=== PATIENT | male | born 1995 | race Caucasian/White ===

== ENCOUNTER 2017-12-30 17:53 | Emergency (ER) | payer OTHER ==
[~2017-12-30] VITALS: Ht 180.3 cm; Wt 86.5 kg
[2017-12-30 17:55] VITALS: BP 172/96; PULSE 80; RESP 16; TEMP 98; O2SAT 98
[2017-12-30 18:12] VITALS: O2SAT 100
[2017-12-30] MEDS ORDERED: SODIUM CHLORIDE 0.9% FLUSH 10 ML FLUSH IVF PRN (18:15)
--- NOTE | 2017-12-30 18:16 | PD ---
HPI Chief Complaint: Chest Pain Time Seen by Provider: 18:01 Travel History International Travel<30 days: No Contact w/Intl Traveler<30days: No Traveled to known affect area: No History of Present Illness HPI 22-year-old male here with his mom for evaluation of chest pain and elevated blood pressure. Patient reports intermittent episodes of left-sided chest discomfort that he describes as sharp/shooting for the last month. Symptoms seem to be more frequent over the last 2 days. In August 2016 the patient fell out of a tree and fractured his cervical and lumbar spine. This was managed nonoperatively. He does have paresthesias in the fingers of his bilateral hands since this injury. Upon arrival to the emergency department patient is chest pain-free. He states that he checked his blood pressure earlier today and it was 150s over 90s. No fevers, chills, cough, or recent illness. No hemoptysis. No history of DVT or PE. No rash. He is a non- smoker. No family history of cardiac disease. He smokes marijuana occasionally. No IVDU or any other illicit drugs. PFSH Past Medical History Medical History: Denies Significant Hx Diminished Hearing: No Tetanus Vaccination: < 5 Years ?: Not Past Surgical History Surgical History: No Previous Surgery Social History Alcohol Use: Yes (OCC) Tobacco Use: Yes Substance Use: No Allergies-Medications (Allergen,Severity, Reaction): Coded Allergies: No Known Allergies (Unverified , 12/30/17) Reported Meds & Prescriptions Reported Meds & Active Scripts Active No Active Prescriptions or Reported Medications Review of Systems Except as stated in HPI: all other systems reviewed are Neg Physical Exam Narrative GENERAL: Well-developed, well-nourished, awake, alert, comfortable, no apparent distress. SKIN: Focused skin assessment warm/dry. No rash. No pallor. HEAD: Atraumatic. Normocephalic. EYES: Pupils equal and round. No scleral icterus. No injection or drainage. ENT: No nasal bleeding or discharge. Mucous membranes pink and moist. NECK: Trachea midline. No JVD. CARDIOVASCULAR: Regular rate and rhythm. 3 out of 6 holosystolic murmur. Distal pulses brisk and equal bilaterally. RESPIRATORY: No accessory muscle use. Clear to auscultation. Breath sounds equal bilaterally. GASTROINTESTINAL: Abdomen soft, non-tender, nondistended. MUSCULOSKELETAL: No obvious deformities. No clubbing. No cyanosis. No edema. NEUROLOGICAL: Awake and alert. No obvious cranial nerve deficits. Motor grossly within normal limits. Normal speech. PSYCHIATRIC: Appropriate mood and affect; insight and judgment normal. Data Data Last Documented VS Vital Signs Date Time Temp Pulse Resp B/P (MAP) Pulse Ox O2 Delivery O2 Flow Rate FiO2 12/30/17 18:12 100 Room Air 12/30/17 18:04 16 12/30/17 17:55 98.0 80 172/96 (121) Orders Orders Electrocardiogram (12/30/17 18:07) Ckmb (Isoenzyme) Profile (12/30/17 18:07) Complete Blood Count With Diff (12/30/17 18:07) Comprehensive Metabolic Panel (12/30/17 18:07) D-Dimer (12/30/17 18:07) Magnesium (Mg) (12/30/17 18:07) Prothrombin Time / Inr (Pt) (12/30/17 18:07) Act Partial Throm Time (Ptt) (12/30/17 18:07) Troponin I (12/30/17 18:07) Chest, Single Ap (12/30/17 18:07) Ecg Monitoring (12/30/17 18:07) Iv Access Insert/Monitor (12/30/17 18:07) Oximetry (12/30/17 18:07) Sodium Chloride 0.9% Flush (Ns Flush) (12/30/17 18:15) Ed Discharge Order (12/30/17 19:34) Labs Laboratory Tests Test 12/30/17 18:10 White Blood Count 5.7 TH/MM3 Red Blood Count 5.51 MIL/MM3 Hemoglobin 17.3 GM/DL Hematocrit 47.6 % Mean Corpuscular Volume 86.4 FL Mean Corpuscular Hemoglobin 31.3 PG Mean Corpuscular Hemoglobin Concent 36.3 % Red Cell Distribution Width 12.2 % Platelet Count 348 TH/MM3 Mean Platelet Volume 8.1 FL Neutrophils (%) (Auto) 66.1 % Lymphocytes (%) (Auto) 23.1 % Monocytes (%) (Auto) 8.2 % Eosinophils (%) (Auto) 2.0 % Basophils (%) (Auto) 0.6 % Neutrophils # (Auto) 3.8 TH/MM3 Lymphocytes # (Auto) 1.3 TH/MM3 Monocytes # (Auto) 0.5 TH/MM3 Eosinophils # (Auto) 0.1 TH/MM3 Basophils # (Auto) 0.0 TH/MM3 CBC Comment AUTO DIFF Differential Comment AUTO DIFF CONFIRMED Platelet Estimate NORMAL Platelet Morphology Comment NORMAL Red Cell Morphology Comment NORMAL Prothrombin Time 11.0 SEC Prothromb Time International Ratio 1.1 RATIO Activated Partial Thromboplast Time 28.4 SEC D-Dimer Quantitative (PE/DVT) LESS THAN 0.19 MG/L FEU Blood Urea Nitrogen 16 MG/DL Creatinine 1.00 MG/DL Random Glucose 95 MG/DL Total Protein 8.1 GM/DL Albumin 4.7 GM/DL Calcium Level 9.2 MG/DL Magnesium Level 2.3 MG/DL Alkaline Phosphatase 63 U/L Aspartate Amino Transf (AST/SGOT) 14 U/L Alanine Aminotransferase (ALT/SGPT) 38 U/L Total Bilirubin 0.6 MG/DL Sodium Level 137 MEQ/L Potassium Level 3.7 MEQ/L Chloride Level 104 MEQ/L Carbon Dioxide Level 26.5 MEQ/L Anion Gap 7 MEQ/L Estimat Glomerular Filtration Rate 95 ML/MIN Total Creatine Kinase 88 U/L Troponin I LESS THAN 0.02 NG/ML MDM Medical Decision Making Medical Screen Exam Complete: Yes Emergency Medical Condition: Yes Differential Diagnosis Musculoskeletal chest wall pain, ACS, pneumothorax, pericarditis, PE, pneumonia Narrative Course Initial vital signs show heart rate 80, blood pressure 172/96, pulse ox 98% on room air, oral temperature 98F. CBC: WBC 5.7, hemoglobin 17.3, hematocrit 47.6, platelets 348. CMP is unremarkable. Cardiac enzymes are negative. D-dimer is less than 0.19. Chest x-ray: The lungs are clear. The patient and the patient's mom were made aware of all findings. At this point patient is stable for discharge home with outpatient follow-up with a primary care physician this week. Patient just obtained health insurance today and will make an appointment with the doctor who he is assigned with. Patient is reassured. He was advised on when to return to the emergency department. He verbalizes understanding and agreement with plan. Diagnosis Primary Impression: Atypical chest pain Additional Impression: Elevated blood pressure reading Referrals: Primary Care Physician 3 days Additional Instructions: Follow-up with a primary care physician this week. Return to the emergency department for worsening symptoms or any other concerns. Scripts No Active Prescriptions or Reported Meds Disposition: 01 DISCHARGE HOME Condition: Sivakumar Mcgovern MD December 30, 2017 18:16
--- NOTE | 2017-12-30 18:20 | RADRPT ---
EXAM DATE: 12/30/2017 6:17 PM EDT AGE/SEX: 22 years / Male INDICATIONS: Left sided chest pain for 24 hours CLINICAL DATA: This is the patient's initial encounter. Patient reports that signs and symptoms have been present for 1 day and indicates a pain score of 3/10. MEDICAL/SURGICAL HISTORY: Hypertension. None. COMPARISON: No prior [facility] exams available for comparison. FINDINGS: A single AP view of the chest demonstrates the lungs to be symmetrically aerated without evidence of mass, infiltrate or effusion. The cardiomediastinal contours are unremarkable. Osseous structures a re intact. CONCLUSION: The lungs are clear. Electronically signed by: Chaitanya Sykes MD 12/30/2017 6:19 PM EDT
[2017-12-30 18:25] LABS: AUTOMATED NEUTROPHIL # 3.8 TH/MM3 (1.8-7.7); BASOPHIL % 0.6 % (0.0-2.0); CHLORIDE 104 MEQ/L (98-107); EOSINOPHIL # 0.1 TH/MM3 (0-0.4); HEMATOCRIT 47.6 % (39.0-51.0); HEMOGLOBIN 17.3 GM/DL (13.0-17.0); LYMPH % 23.1 % (9.0-44.0); LYMPHOCYTE # 1.3 TH/MM3 (1.0-4.8); MEAN CELL VOLUME 86.4 FL (80.0-100.0); MEAN CORPUSCULAR HEMOGLOBIN 31.3 PG (27.0-34.0); MEAN PLATELET VOLUME 8.1 FL (7.0-11.0); MONO % 8.2 % (0.0-8.0); MONOCYTE # 0.5 TH/MM3 (0-0.9); NEUT % 66.1 % (16.0-70.0); PLATELET COUNT 348 TH/MM3 (150-450); RED BLOOD COUNT 5.51 MIL/MM3 (4.50-5.90); RED CELL DISTRIBUTION WIDTH 12.2 % (11.6-17.2); SODIUM (NA) 137 MEQ/L (136-145); WHITE BLOOD COUNT 5.7 TH/MM3 (4.0-11.0)
[2017-12-30 18:29] LABS: ALBUMIN 4.7 GM/DL (3.4-5.0); BICARBONATE 26.5 MEQ/L (21.0-32.0); BLOOD UREA NITROGEN 16 MG/DL (7-18); CALCIUM 9.2 MG/DL (8.5-10.1); GLUCOSE,RANDOM 95 MG/DL (74-106); MAGNESIUM 2.3 MG/DL (1.5-2.5)
[2017-12-30 18:32] LABS: ALT (GPT) 38 U/L (9-52); AST (GOT) 14 U/L (15-39); GLOMERULAR FILTRATION RATE 95 ML/MIN (>89)
[2017-12-30 18:34] LABS: TOTAL BILIRUBIN ADULT 0.6 MG/DL (0.2-1.0); TOTAL PROTEIN 8.1 GM/DL (6.4-8.2)
[2017-12-30 18:35] LABS: ALKALINE PHOSPHATASE 63 U/L (45-117); INTERNATIONAL NORMALIZED RATIO 1.1 RATIO
[2017-12-30 18:37] LABS: TROPONIN I LESS THAN 0.02 NG/ML (0.02-0.05)
[2017-12-30 18:40] LABS: D-DIMER LESS THAN 0.19 MG/L FEU (0.00-0.50); MEAN CORPUSCULAR HGB CONC 36.3 % (32.0-36.0)
--- NOTE | 2018-01-01 08:20 | EKG ---
Date Performed: 12/30/2017 Time Performed: 18:02:44 PTAGE: 22 years EKG: Sinus rhythm NORMAL ECG INTERPRETATION BASED ON A DEFAULT AGE OF 42 YEARS NO PREVIOUS TRACING DOCTOR: Chirag Law Interpretating Date/Time 01/01/2018 08:14:58
== END 2017-12-30 19:41 | disposition home or self-care (01) ==
LOC: PHED 17:53
DX: R07.89 Other chest pain (principal); I10 Essential (primary) hypertension; Z72.0 Tobacco use
CPT/HCPCS: 71045; 80053; 82550; 83735; 84484; 85025; 85379; 85610; 85730; 93005; 99285